=== PATIENT | male | born 1980 | race Caucasian/White ===

== ENCOUNTER → 2016-06-25 | Outpatient (CLI) | payer BC ==
[~2016-06-25] MED LIST: BUSP15TA70 PO; CITA40TA12 PO; DOCU100T7 PO; ELVI1TAB2 PEG; LORA-741 PO; RANITAB33 PO
[2016-06-25 12:38] LABS: BASO % 0.2 %; BASO ABS # 0.01 K/uL (0-0.2); COMPLETE YES; EOS % 0.8 %; IG% 0.2 %; LYMPH % 45.3 %; LYMPH ABS # 2.27 K/uL (1.2-3.4); MEAN CELL VOLUME 89.6 fL (80-100); MEAN CORPUSCULAR HEMOGLOBIN 31.3 pg (25-34); MEAN CORPUSCULAR HGB CONC 34.9 g/dl (32-36); MEAN PLATELET VOLUME 10.7 fL (7.4-10.4); MONO % 7.6 %; NEUT % 45.9 %; PLATELET COUNT 207 K/uL (130-400); WHITE BLOOD COUNT 5.01 K/uL (4.8-10.8)
[2016-06-25 12:48] LABS: ALT/SGPT 35 U/L (12-78); AST/SGOT 23 U/L (15-37); BLOOD UREA NITROGEN 10 mg/dl (7-18); BUN/CREATININE RATIO 10.1 (10-20); CALCIUM 8.9 mg/dl (8.5-10.1); CARBON DIOXIDE 28 mmol/L (21-32); CHLORIDE 106 mmol/L (98-107); CREATININE 0.95 mg/dl (0.60-1.40); GLUCOSE 93 mg/dl (70-99); POTASSIUM 3.9 mmol/L (3.5-5.1); SODIUM 140 mmol/L (136-145)
[2016-06-25 12:51] LABS: ALB/GLOB RATIO 1.1 (0.9-2); ALKALINE PHOSPHATASE 82 U/L (45-117); CHOLESTEROL 220 mg/dl (0-200); CHOLESTEROL/HDL RATIO 4.6; HDL CHOLESTEROL 48 mg/dl; LDL CHOLESTEROL CALCULATED 125 mg/dl; TRIGLYCERIDES 234 mg/dl (0-150); VERY LOW DENSITY LIPOPROT CALC 47 mg/dl
[2016-06-28 12:36] LABS: LSP % CELLS ANALYZED CD4 35 % (30-61); LSP ABSOLUTE CT CD4 794 cells/uL (490-1740); LSP LYMPHOCYTES ABSOLUTE 2290 cells/uL (850-3900)
== END | disposition home or self-care (01) ==
LOC: C.LABPBG 07:35
PROVIDERS: ATTEND Internal Medicine Infectious Disease
DX: B20 Human immunodeficiency virus [HIV] disease (principal)

== ENCOUNTER → 2017-04-08 | Outpatient (CLI) | payer BC ==
[2017-04-08 10:39] LABS: BASO % 0.2 %; BASO ABS # 0.01 K/uL (0-0.2); EOS ABS # 0.05 K/uL (0-0.5); HEMATOCRIT 44.9 % (42-52); HEMOGLOBIN 15.4 g/dL (14.0-18.0); IG# 0.02 K/uL (0.00-0.02); LYMPH % 38.4 %; MEAN CELL VOLUME 94.7 fL (80-100); MEAN CORPUSCULAR HEMOGLOBIN 32.5 pg (25-34); MEAN CORPUSCULAR HGB CONC 34.3 g/dl (32-36); MEAN PLATELET VOLUME 10.4 fL (7.4-10.4); MONO % 7.7 %; NEUT % 52.3 %; NEUT ABS # 2.73 K/uL (1.4-6.5); PLATELET COUNT 198 K/uL (130-400); RED CELL DISTRIBUTION WIDTH SD 45.1 fL (36.4-46.3); WHITE BLOOD COUNT 5.21 K/uL (4.8-10.8)
[2017-04-08 12:03] LABS: ALT/SGPT 41 U/L (12-78); AST/SGOT 22 U/L (15-37); BLOOD UREA NITROGEN 12 mg/dl (7-18); CARBON DIOXIDE 28 mmol/L (21-32); CHOLESTEROL 226 mg/dl (0-200); CREATININE 1.06 mg/dl (0.60-1.40); GLUCOSE 86 mg/dl (70-99); POTASSIUM 4.3 mmol/L (3.5-5.1); SODIUM 138 mmol/L (136-145)
[2017-04-08 12:05] LABS: ALKALINE PHOSPHATASE 79 U/L (45-117); LDL CHOLESTEROL CALCULATED 125 mg/dl; TOTAL PROTEIN 7.8 gm/dl (6.4-8.2)
== END | disposition home or self-care (01) ==
LOC: C.LAB1850 09:35
PROVIDERS: ATTEND Internal Medicine Infectious Disease
DX: B20 Human immunodeficiency virus [HIV] disease (principal)

== ENCOUNTER 2017-07-08 12:11 | Emergency (ER) | payer BC ==
[~2017-07-08] VITALS: Ht 182.9 cm; Wt 86.6 kg
[~2017-07-08 12:11] MED LIST changes: -ELVI1TAB2 PEG; +ELVI1TAB2 PO
[2017-07-08 12:18] VITALS: Ht 182.9 cm; Wt 86.6 kg
[2017-07-08] MEDS ORDERED: SODIUM CHLORIDE 0.9% 1000ML 1,000 ML IV STA ×2 (13:32→15:59)
[2017-07-08] MEDS ORDERED: ACETAMINOPHEN 500 MG TAB PO STA ×2 (13:36→18:53)
[2017-07-08 14:23] LABS: BASO % 0.2 %; BASO ABS # 0.01 K/uL (0-0.2); EOS % 0.2 %; EOS ABS # 0.01 K/uL (0-0.5); HEMATOCRIT 45.7 % (42-52); HEMOGLOBIN 15.7 g/dL (14.0-18.0); IG# 0.01 K/uL (0.00-0.02); LYMPH % 12.6 %; LYMPH ABS # 0.73 K/uL (1.2-3.4); MEAN CORPUSCULAR HEMOGLOBIN 32.3 pg (25-34); MEAN CORPUSCULAR HGB CONC 34.4 g/dl (32-36); MONO % 13.1 %; MONO ABS # 0.76 K/uL (0.11-0.59); NEUT % 73.7 %; NEUT ABS # 4.26 K/uL (1.4-6.5); PLATELET COUNT 168 K/uL (130-400); RED CELL DISTRIBUTION WIDTH CV 13.2 % (11.5-14.5); RED CELL DISTRIBUTION WIDTH SD 45.8 fL (36.4-46.3); WHITE BLOOD COUNT 5.78 K/uL (4.8-10.8)
[2017-07-08 14:30] LABS: INFLUENZA B ANTIGEN Neg for Influ B (NEG)
--- NOTE | 2017-07-08 14:35 | DIAGNOSTIC IMAGING REPORT ---
CHEST 2 VIEWS ROUTINE CLINICAL HISTORY: 37 years-old Male presenting with cough, fevers, illness, stiff neck. TECHNIQUE: PA and lateral views of the chest were obtained. COMPARISON: None. FINDINGS: Cardiomediastinal silhouette normal. Lungs and pleural spaces clear. Osseous structures normal. Upper abdomen normal. IMPRESSION: 1. No acute cardiopulmonary disease. Electronically signed by: Bj Damon M.D. 07/08/2017 2:33 PM Dictated Date/Time: 07/08/2017 2:32 PM
[2017-07-08 14:36] LABS: ALT/SGPT 43 U/L (12-78); BLOOD UREA NITROGEN 10 mg/dl (7-18); CALCIUM 9.1 mg/dl (8.5-10.1); CARBON DIOXIDE 28 mmol/L (21-32); CREATININE 1.28 mg/dl (0.60-1.40); GLUCOSE 86 mg/dl (70-99); POTASSIUM 3.9 mmol/L (3.5-5.1); SODIUM 136 mmol/L (136-145)
[2017-07-08 14:41] LABS: ALKALINE PHOSPHATASE 83 U/L (45-117); AST/SGOT 28 U/L (15-37)
[2017-07-08] MEDS ORDERED: KETOROLAC TROMETHAMINE 30 MG/ML VIAL IV STA (15:59)
[2017-07-08] MEDS ORDERED: BENZONATATE 100MG CAP PO ONE (16:00)
[2017-07-08 18:07] VITALS: TEMP 36.9
--- NOTE | 2017-07-08 18:38 | DIAGNOSTIC IMAGING REPORT ---
CT ANGIOGRAM OF THE BRAIN COMBO CLINICAL HISTORY: Headache. COMPARISON STUDY: CT of the brain dated 09/19/2007. TECHNIQUE: Unenhanced axial CT scan of the brain is performed. Subsequently, following the IV administration of 106 cc of Optiray 320, CT angiogram of the brain was performed from the skull base to the vertex. Images are reviewed in the axial, sagittal, and coronal planes. 3-D MIPS images are created and assessed. IV contrast was administered without complication. A dose lowering technique was utilized adhering to the principles of ALARA. CT DOSE: 765.48 mGy.cm FINDINGS: Brain parenchyma: The brain parenchyma is normal in appearance. There is no hemorrhage, mass effect, or evidence of acute territorial ischemia by CT criteria. There is no evidence of enhancing mass lesion on the angiogram phase images. No extra-axial fluid collection is seen. Steel-white matter differentiation is preserved. Ventricles, sulci, and cisterns: Normal in configuration. CT angiogram of the brain: The [place] is developmentally complete. The internal carotid arteries are widely patent, as are the anterior and middle cerebral arteries. The vertebrobasilar system and posterior cerebral arteries are widely patent. The vertebral arteries are codominant. There is no aneurysm, high-grade stenosis, or focal vessel cutoff identified throughout the intracranial circulation. Dural sinuses: Clear as visualized. Orbits: The bony orbits are intact. The orbital contents are normal as visualized. Sinuses and mastoids: Trace mucosal thickening is seen in the maxillary antra and ethmoid sinuses. The remaining paranasal sinuses are clear. The mastoid air cells are well pneumatized. Calvarium: Unremarkable. IMPRESSION: 1. No acute intracranial amount abnormality. 2. Unremarkable CT angiogram of the brain. Electronically signed by: Anthony Crum M.D. 07/08/2017 6:37 PM Dictated Date/Time: 07/08/2017 6:32 PM
[2017-07-08] MEDS ORDERED: OPTIRAY 320 IV PRN (18:45)
--- NOTE | 2017-07-08 18:57 | EMERGENCY ROOM VISIT NOTE ---
History Report prepared by Larry: Suha Fernandez Under the Supervision of: Dr. Cristina Boswell D.O. First contact with patient: 13:19 Chief Complaint: FEVER Stated Complaint: NECK STIFF, COUGH, SHAKES, FEVER, CHILLS History of Present Illness The patient is a 37 year old male who presents to the Emergency Room with complaints of worsening generalized illness beginning two and a half weeks ago. The patient reports he was sick with cough and runny nose and was put on a twice a day 10 day course of antibiotics. He is unsure of what antibiotic he was put on. His last does of the antibiotic was today. The patient reports he started to have the shakes, a headache, neck soreness, dark urine, fatigue and sweats. He notes an intermittently dry or wet yellow/green productive cough. He reports feeling feverish but denies taking his temperature. He notes one episode of vomiting after a "coughing fit". He denies any rashes, sores, or swelling to his legs. The patient notes an episode of lightheadedness yesterday. He reports intermittent central abdominal pain began last night. The patient saw PCP this morning who sent him to the ED for a meningitis rule out. The patient has a history of pneumonia when he was a child. He denies any recent travel. Pt denies change in vision, fevers, chest pain, shortness of breath, nausea, diarrhea, pain with urination, and melena. Source of History: patient Onset: 2 and a half weeks ago Position: other (generalized) Quality: other (illness) Timing: worsening Associated Symptoms: + headache, + diaphoresis, + cough, + neck pain, + vomiting, + abdominal pain, + urinary symptoms, No chest pain, No SOB, No nausea , No diarrhea Review of Systems See HPI for pertinent positives & negatives. A total of 10 systems reviewed and were otherwise negative. Past Medical & Surgical Medical Problems: (1) Depression (2) GERD (gastroesophageal reflux disease) (3) HIV (human immunodeficiency virus infection) Family History Patient reports no known family medical history. Social History Smoking Status: Current Every Day Smoker Marital Status: Housing Status: lives with family Occupation Status: employed Current/Historical Medications Scheduled Benzonatate (Tessalon Perles), 100 MG PO Q8 Buspirone Hcl (Buspar), 30 MG PO DAILY Citalopram Hydrobromide (Celexa), 40 MG PO DAILY Bdywawwuoseh-Ocgbggikyd-Rbhfyc (Stribild), 150 MG PO DAILY Lorazepam (Ativan), 0.5 MG PO Q6H Allergies Coded Allergies: Penicillins (Unverified Allergy, Unknown, ?, 07/08/17) Physical Exam Vital Signs Date Time Temp Pulse Resp B/P (MAP) Pulse Ox O2 Delivery O2 Flow Rate FiO2 07/08/17 19:53 83 22 126/61 98 07/08/17 18:14 83 07/08/17 18:07 36.9 83 22 126/61 98 Room Air 07/08/17 17:56 75 16 98 Room Air 07/08/17 16:02 69 18 98 Room Air 07/08/17 15:05 65 126/61 07/08/17 12:18 36.9 104 20 127/82 97 Room Air Physical Exam GENERAL: alert, well appearing, with intermittent cough, no distress, non-toxic EYE EXAM: normal conjunctiva, PERRL and EOM's grossly intact OROPHARYNX: no exudate, no erythema, lips, buccal mucosa, and tongue normal and mucous membranes are moist NECK: supple, no nuchal rigidity, no adenopathy, non-tender,no meningeal signs, full ROM. LUNGS: Clear to auscultation. Normal chest wall mechanics HEART: no murmurs, S1 normal and S2 normal ABDOMEN: abdomen soft, non-tender, normo-active bowel sounds, no masses, no rebound or guarding. BACK: Back is symmetrical on inspection and there is no deformity, no midline tenderness, no CVA tenderness. SKIN: no rashes and no bruising, no petechiae UPPER EXTREMITIES: upper extremities are grossly normal. Full range of motion, normal pulses. LOWER EXTREMITIES: No pitting edema. Full range of motion, normal pulses. NEURO EXAM: Normal sensorium, cranial nerves II-XII grossly intact, normal speech, no gross weakness of arms, no gross weakness of legs. Medical Decision & Procedures ER Provider Diagnostic Interpretation: Radiology results have been interpreted by the radiologist and reviewed by me. CHEST 2 VIEWS ROUTINE FINDINGS: Cardiomediastinal silhouette normal. Lungs and pleural spaces clear. Osseous structures normal. Upper abdomen normal. IMPRESSION: 1. No acute cardiopulmonary disease. Electronically signed by: Bj Damon M.D. CT ANGIOGRAM OF THE BRAIN COMBO FINDINGS: Brain parenchyma: The brain parenchyma is normal in appearance. There is no hemorrhage, mass effect, or evidence of acute territorial ischemia by CT criteria. There is no evidence of enhancing mass lesion on the angiogram phase images. No extra-axial fluid collection is seen. Steel-white matter differentiation is preserved. Ventricles, sulci, and cisterns: Normal in configuration. CT angiogram of the brain: The [place] is developmentally complete. The internal carotid arteries are widely patent, as are the anterior and middle cerebral arteries. The vertebrobasilar system and posterior cerebral arteries are widely patent. The vertebral arteries are codominant. There is no aneurysm, high-grade stenosis, or focal vessel cutoff identified throughout the intracranial circulation. Dural sinuses: Clear as visualized. Orbits: The bony orbits are intact. The orbital contents are normal as visualized. Sinuses and mastoids: Trace mucosal thickening is seen in the maxillary antra and ethmoid sinuses. The remaining paranasal sinuses are clear. The mastoid air cells are well pneumatized. Calvarium: Unremarkable. IMPRESSION: 1. No acute intracranial amount abnormality. 2. Unremarkable CT angiogram of the brain. Electronically signed by: Anthony Crum M.D. Laboratory Results 07/08/17 14:08 Red Blood Count 4.86, Mean Corpuscular Volume 94.0, Mean Corpuscular Hemoglobin 32.3, Mean Corpuscular Hemoglobin Concent 34.4, Mean Platelet Volume 10.0, Neutrophils (%) (Auto) 73.7, Lymphocytes (%) (Auto) 12.6, Monocytes (%) (Auto) 13.1, Eosinophils (%) (Auto) 0.2, Basophils (%) (Auto) 0.2, Neutrophils # (Auto ) 4.26, Lymphocytes # (Auto) 0.73, Monocytes # (Auto) 0.76, Eosinophils # (Auto ) 0.01, Basophils # (Auto) 0.01 07/08/17 14:08 Test 07/08/17 13:56 07/08/17 14:00 07/08/17 14:08 07/08/17 15:00 Bedside Lactic Acid Venous 0.78 mmol/L (0.90-1.70) Influenza Type A Antigen Neg for Influ A (NEG) Influenza Type B Antigen Neg for Influ B (NEG) White Blood Count 5.78 K/uL (4.8-10.8) Red Blood Count 4.86 M/uL (4.7-6.1) Hemoglobin 15.7 g/dL (14.0-18.0) Hematocrit 45.7 % (42-52) Mean Corpuscular Volume 94.0 fL (80-100) Mean Corpuscular Hemoglobin 32.3 pg (25-34) Mean Corpuscular Hemoglobin Concent 34.4 g/dl (32-36) Platelet Count 168 K/uL (130-400) Mean Platelet Volume 10.0 fL (7.4-10.4) Neutrophils (%) (Auto) 73.7 % Lymphocytes (%) (Auto) 12.6 % Monocytes (%) (Auto) 13.1 % Eosinophils (%) (Auto) 0.2 % Basophils (%) (Auto) 0.2 % Neutrophils # (Auto) 4.26 K/uL (1.4-6.5) Lymphocytes # (Auto) 0.73 K/uL (1.2-3.4) Monocytes # (Auto) 0.76 K/uL (0.11-0.59) Eosinophils # (Auto) 0.01 K/uL (0-0.5) Basophils # (Auto) 0.01 K/uL (0-0.2) RDW Standard Deviation 45.8 fL (36.4-46.3) RDW Coefficient of Variation 13.2 % (11.5-14.5) Immature Granulocyte % (Auto) 0.2 % Immature Granulocyte # (Auto) 0.01 K/uL (0.00-0.02) Anion Gap 7.0 mmol/L (3-11) Est Creatinine Clear Calc Drug Dose 86.7 ml/min Estimated GFR () 82.3 Estimated GFR (Non- 71.0 BUN/Creatinine Ratio 7.7 (10-20) Calcium Level 9.1 mg/dl (8.5-10.1) Magnesium Level 2.2 mg/dl (1.8-2.4) Total Bilirubin 0.4 mg/dl (0.2-1) Aspartate Amino Transf (AST/SGOT) 28 U/L (15-37) Alanine Aminotransferase (ALT/SGPT) 43 U/L (12-78) Alkaline Phosphatase 83 U/L (45-117) Total Creatine Kinase 57 U/L (39-308) Troponin I < 0.015 ng/ml (0-0.045) Total Protein 8.0 gm/dl (6.4-8.2) Albumin 4.0 gm/dl (3.4-5.0) Globulin 4.0 gm/dl (2.5-4.0) Albumin/Globulin Ratio 1.0 (0.9-2) Urine Color YELLOW Urine Appearance CLOUDY (CLEAR) Urine pH 8.5 (4.5-7.5) Urine Specific [place] 1.023 (1.000-1.030) Urine Protein NEG (NEG) Urine Glucose (UA) NEG (NEG) Urine Ketones NEG (NEG) Urine Occult Blood NEG (NEG) Urine Nitrite NEG (NEG) Urine Bilirubin NEG (NEG) Urine Urobilinogen NEG (NEG) Urine Leukocyte Esterase NEG (NEG) Urine WBC (Auto) 0 /hpf (0-5) Urine RBC (Auto) 0-4 /hpf (0-4) Urine Hyaline Casts (Auto) 0 /lpf (0-5) Urine Epithelial Cells (Auto) 0-5 /lpf (0-5) Urine Bacteria (Auto) NEG (NEG) Laboratory results per my review. Medications Administered Medications (Trade) Dose Ordered Sig/[place] Route Start Time Stop Time Status Last Admin Dose Admin Sodium Chloride 1,000 ml @ 999 mls/hr Q1H1M STAT IV 07/08/17 13:32 07/08/17 14:40 DC 07/08/17 14:00 999 MLS/HR Acetaminophen (Tylenol Tab) 1,000 mg NOW STAT PO 07/08/17 13:36 07/08/17 13:37 DC 07/08/17 14:00 1,000 MG Ketorolac Tromethamine (Toradol Inj) 30 mg NOW STAT IV 07/08/17 15:59 07/08/17 16:00 DC 07/08/17 16:11 30 MG Sodium Chloride 1,000 ml @ 999 mls/hr Q1H1M STAT IV 07/08/17 15:59 07/08/17 16:59 DC 07/08/17 16:14 999 MLS/HR Benzonatate (Tessalon Perles Cap) 100 mg NOW ONCE PO 07/08/17 16:00 07/08/17 16:01 DC 07/08/17 16:11 100 MG Acetaminophen (Tylenol Tab) 1,000 mg NOW STAT PO 07/08/17 18:53 07/08/17 18:54 DC 07/08/17 19:55 1,000 MG ECG Per My Interpretation Indication: weakness Rate (beats per minute): 89 Rhythm: sinus rhythm Findings: no acute ischemic change, no ectopy, other (normal axis, normal intervals, no convincing evidence for pericarditis) ED Course 1321: The patient was evaluated in room A4B. A complete history and physical exam was performed. 1332: Ordered Sodium Chloride 1000 ml @ 999 mls/hr IV. 1336: Ordered Acetaminophen 1000 mg PO. 1559: Ordered Sodium Chloride 1000 ml @ 999 mls/hr IV, Toradol Inj 30 mg IV. 1600: Ordered Benzonatate 100 mg PO. 1636: I updated the patient on his test results. He reports he still feels unwell, c/o persistent headache. 1846: I updated the patient. He is feeling slightly better. 1853: Ordered Acetaminophen 1000 mg PO. 1905: Upon reevaluation, the patient is feeling better. I discussed the findings and the treatment plan with the patient. He verbalizes agreement and understanding. He was discharged home. Medical Decision Differential diagnosis: Etiologies such as viral syndrome, otitis, pharyngitis, pneumonia, influenza, meningitis, urinary tract infection, sepsis, bacteremia, as well as others were entertained. Patient well-appearing here, received several liters of IV fluids. Labs and imaging reassuring. Patient with diffuse whole body pain, not isolated to head and neck. Patient with full range of motion of his neck, no stiffness, and no nuchal rigidity. Patient with a normal nonfocal neuro exam at bedside. I do not suspect meningitis/encephalitis. He will patient more likely with a flulike viral illness. Patient able to tolerate p.o. here, and did feel slightly improved with Tylenol and ibuprofen. Patient still complained of myalgias however was able to get up and down the bathroom several times without difficulty. No vomiting. Discussed with patient rest, diet and hydration, use of Tylenol and ibuprofen, symptoms to watch and return for, he verbalized understanding was agreeable with plan. I do not suspect significant occult infectious etiology such as bacteremia or sepsis. No other focal symptoms to warrant additional imaging. I do not suspect acute presentation of vasculitis or other rheumatologic phenomenon. No evidence of myocarditis/pericarditis. I do not suspect subarachnoid hemorrhage, other acute intracranial abnormality. Medication Reconcilliation Current Medication List: was personally reviewed by me Blood Pressure Screening Patient's blood pressure: Normal blood pressure Impression Primary Impression: Influenza-like symptoms Additional Impression: Cough Scribe Attestation The scribe's documentation has been prepared under my direction and personally reviewed by me in its entirety. I confirm that the note above accurately reflects all work, treatment, procedures, and medical decision making performed by me. Departure Information Dispostion Home / Self-Care Prescriptions Benzonatate (Tessalon Perles) 100 Mg Cap 100 MG PO Q8 for Cough, #30 CAP Prov: Cristina Boswell, 07/08/17 Referrals Bernardo Lopez D.ODolores (PCP) Forms HOME CARE DOCUMENTATION FORM, IMPORTANT VISIT INFORMATION Patient Instructions ED Viral Syndrome, My [facility] Additional Instructions Please rest. Drink plenty of clear liquids to stay well-hydrated primarily water. You may use Tylenol/acetaminophen or Motrin/ibuprofen as needed for fevers and pain. Please take as directed on the bottle. Do not take more than 4 g (4000 mg) of Tylenol in 1 day. Do not take ibuprofen on an empty stomach. You may eat as tolerated. If you have any worsening pain or headaches, develop dizziness, vomiting, fevers greater than 100.4 F, increased weakness, or any other new concerns, please return to the emergency room. Problem Qualifiers
[2017-07-08] MEDS ORDERED: BENZ100C84 PO (18:58)
[2017-07-08 19:53] VITALS: BP 126/61; PULSE 83; O2SAT 98
== END 2017-07-08 19:54 | disposition home or self-care (01) ==
LOC: C.EDB 12:12 → C.EDA 19:54
DX: R05 Cough (principal); R51 Headache; M54.2 Cervicalgia; R53.83 Other fatigue; Z87.01 Personal history of pneumonia (recurrent); F32.9 Major depressive disorder, single episode, unspecified; K21.9 Gastro-esophageal reflux disease without esophagitis; Z21 Asymptomatic human immunodeficiency virus [HIV] infection status; F17.210 Nicotine dependence, cigarettes, uncomplicated; Z79.899 Other long term (current) drug therapy; Z88.0 Allergy status to penicillin

== ENCOUNTER → 2017-10-20 | Outpatient (CLI) | payer BC ==
[~2017-10-20] MED LIST changes: +BENZ100C84 PO; -DOCU100T7 PO; -RANITAB33 PO
[2017-10-20 09:40] LABS: BASO % 0.2 %; BASO ABS # 0.01 K/uL (0-0.2); EOS % 1.2 %; EOS ABS # 0.06 K/uL (0-0.5); HEMATOCRIT 45.3 % (42-52); HEMOGLOBIN 15.5 g/dL (14.0-18.0); IG# 0.01 K/uL (0.00-0.02); LYMPH % 38.4 %; LYMPH ABS # 1.95 K/uL (1.2-3.4); MEAN CELL VOLUME 94.4 fL (80-100); MEAN CORPUSCULAR HEMOGLOBIN 32.3 pg (25-34); MEAN CORPUSCULAR HGB CONC 34.2 g/dl (32-36); MEAN PLATELET VOLUME 10.7 fL (7.4-10.4); MONO % 9.3 %; MONO ABS # 0.47 K/uL (0.11-0.59); NEUT % 50.7 %; NEUT ABS # 2.58 K/uL (1.4-6.5); PLATELET COUNT 201 K/uL (130-400); RED CELL DISTRIBUTION WIDTH CV 13.1 % (11.5-14.5); RED CELL DISTRIBUTION WIDTH SD 45.4 fL (36.4-46.3); WHITE BLOOD COUNT 5.08 K/uL (4.8-10.8)
[2017-10-20 10:02] LABS: ALBUMIN 4.1 gm/dl (3.4-5.0); ALKALINE PHOSPHATASE 82 U/L (45-117); ALT/SGPT 32 U/L (12-78); AST/SGOT 22 U/L (15-37); BLOOD UREA NITROGEN 13 mg/dl (7-18); CARBON DIOXIDE 30 mmol/L (21-32); CHOLESTEROL 186 mg/dl (0-200); CREATININE 1.18 mg/dl (0.60-1.40); GLUCOSE 98 mg/dl (70-99); LDL CHOLESTEROL CALCULATED 82 mg/dl; POTASSIUM 3.7 mmol/L (3.5-5.1); SODIUM 138 mmol/L (136-145); TOTAL PROTEIN 7.7 gm/dl (6.4-8.2)
== END | disposition home or self-care (01) ==
LOC: C.LAB1850 08:16
PROVIDERS: ATTEND Internal Medicine Infectious Disease
DX: B20 Human immunodeficiency virus [HIV] disease (principal)